=== PATIENT | female | born 1980 | race African-American/Black ===

== ENCOUNTER 2020-01-09 01:26 | Day surgery (SDC) | payer OTHER, SELFPAY ==
[2019-12-25 16:47] VITALS: BMI 44.8
[2020-01-09] VITALS (8 sets, daily range): BP systolic 114–134; BP diastolic 57–74; PULSE 78–97; RESP 16–20; TEMP 36.6; O2SAT 90–95
--- NOTE | 2020-01-09 12:59 | WPDHPUPDATE1 ---
History and Physical Update Update Date/Time: 01/09/20 12:59 History and Physical has been reviewed, including an updated exam of the patient. There are NO changes in the patient's condition. Risks, benefits, and alternatives have been discussed and questions answered. Patient agrees to proceed with procedure.
[2020-01-09] MEDS: LIDO 1%/EPINEPHRINE 1:100,000 20 ML VIAL 40 ML INFILTRATE (13:36)
--- NOTE | 2020-01-09 14:17 | P.OP_ITS ---
Procedure Note - Detailed Date of procedure: 01/09/20 Pre-op diagnosis: Right flank mass Post-op diagnosis: same Procedure performed: 1. Excision of 11 cm right flank mass 2. Layered intermediate closure Description of procedure: * Procedure as well as risks benefits and alternatives were discussed with the patient. Written consent was obtained and placed in chart prior to procedure. Patient was brought back to surgical suite. She was placed in left lateral decubitus position. Time-out was done to confirm patient and procedure. Her right flank area was prepped and draped in sterile fashion using chlorhexidine prep. 1% lidocaine with epinephrine was infiltrated locally around the mass. An 11 cm elliptical incision was made around the entire mass using a 15 blade scalpel. Electrocautery was used for hemostasis and for dissection around the mass. The mass was carefully excised using electrocautery. Once the mass was completely excised, the wound bed was inspected. Hemostasis was achieved with electrocautery. No other masses were identified. Keesha's fascia and the deep dermis were approximated using 2 0 Vicryl inverted interrupted sutures. The skin was then approximated using 4 Monocryl running subcuticular suture. Exofin glue was then applied. Patient was transferred to recovery. Anesthesia: local (1% lidocaine with epinephrine) Surgeon: Marcos Tenorio DO Estimated blood loss (mL): 10 Pathology: yes (11 cm right flank mass) Complications: No immediate complications Condition: stable Disposition: same day Findings: * This is a 39-year-old woman who presented with a lump on her right flank. This had gradually increased in size over the past couple years. She notices some pressure when it is pressed on, but no significant pain with this. Discussions were made with the patient about treatment options, and decision was made to proceed with excision of right flank mass. * Excision of right flank mass was performed under local anesthesia. The mass appeared to be a lipoma and measured approximately 11 cm. A layered closure was performed using 2 0 Vicryl deep interrupted sutures followed by 4 0 Monocryl running subcuticular suture.
== END 2020-01-09 14:40 | disposition home or self-care (01) ==
PROVIDERS: PCP Internal Medicine; Visit Provider Surgery
PROC: (CPT 21931; principal; 2020-01-09 13:30)
DX: R22.2 Localized swelling, mass and lump, trunk (principal)
CPT/HCPCS: 21931; 88304; A9270